=== PATIENT | male | born 1945 | race Caucasian/White ===

== ENCOUNTER 2016-09-14 17:51 | Emergency (ER) | payer OTHER ==
[2016-09-14 18:49] LABS: BUN/CREATININE RATIO 10 (0-10)
[2016-09-14 19:05] LABS: HEMOGLOBIN 14.1 gm/dl (14.0-17.5); RED BLOOD COUNT 5.47 M/UL (4.20-5.50)
[2016-09-18 12:29] LABS: WHITE BLOOD COUNT 20.1 K/UL (4.5-11.0)
[2016-12-13] MEDS ORDERED: ASPIR 8181 MG PO (09:34)
[2016-12-13] MEDS ORDERED: ELIQUIS5 MG PO (09:37)
[2016-12-13] MEDS ORDERED: METOPROLOL TART50 MG PO (09:40)
[2016-12-13] MEDS ORDERED: ZOCOR40 MG PO (09:41)
[2016-12-13] MEDS ORDERED: OMEPRAZOLE20 M1 PO (09:41)
[2016-12-13] MEDS ORDERED: COLESTID1 GM PO (09:43)
[2016-12-13] MEDS ORDERED: CLARITIN10 M2 PO (09:43)
[2016-12-13] MEDS ORDERED: ZOLOFT100 MG PO (09:44)
[2016-12-13] MEDS ORDERED: B-12500 MC1 SL (09:45)
[2016-12-13] MEDS ORDERED: B COMPLEX # 11 EACH PO (09:45)
[2016-12-13] MEDS ORDERED: VITAMIN D250000 UNIT PO (09:45)
[2017-01-28] MEDS ORDERED: LASIX20 MG PO (11:10)
[2017-01-28] MEDS ORDERED: DIGOXIN250 MCG PO (11:10)
[2017-01-28] MEDS ORDERED: IMDUR ER TAB 6060 MG PO (11:11)
[2017-01-28] MEDS ORDERED: FLOMAX 0.4 MG0.4 MG PO (11:13)
[2017-01-28] MEDS ORDERED: VITAMIN D10000 UNIT PO (11:14)
[2017-01-28] MEDS ORDERED: LISINOPRIL2.5 MG PO (11:15)
[2017-01-31] MEDS ORDERED: ALDACTONE25 MG PO (19:25)
== END 2016-09-14 23:45 | disposition home or self-care (01) ==
LOC: ER1 17:51
PROVIDERS: Emergency Medicine
DX: S02.2XXA Fracture of nasal bones, initial encounter for closed fracture (principal); S01.81XA Laceration without foreign body of other part of head, initial encounter; S50.02XA Contusion of left elbow, initial encounter; S80.212A Abrasion, left knee, initial encounter; I10 Essential (primary) hypertension; I48.91 Unspecified atrial fibrillation; Z87.891 Personal history of nicotine dependence; Z79.01 Long term (current) use of anticoagulants; Z88.8 Allergy status to other drugs, medicaments and biological substances; W18.39XA Other fall on same level, initial encounter; Y92.241 Library as the place of occurrence of the external cause
CPT/HCPCS: 12004; 70450; 70486; 72125; 72170; 73080; 73564; 80053; 84484; 85025; 85610; 85730; 96365; 96375; 99283; J0690; J2270; J2405; J7050

== ENCOUNTER → 2016-10-12 | Outpatient (CLI) | payer OTHER ==
[~2016-10-12] MED LIST: ALDACTONE25 MG PO; ASPIR 8181 MG PO; B COMPLEX # 11 EACH PO; B-12500 MC1 SL; CLARITIN10 M2 PO; COLESTID1 GM PO; DIGOXIN250 MCG PO; ELIQUIS5 MG PO; FLOMAX 0.4 MG0.4 MG PO; IMDUR ER TAB 6060 MG PO; LASIX20 MG PO; LISINOPRIL2.5 MG PO; METOPROLOL TART50 MG PO; OMEPRAZOLE20 M1 PO; VITAMIN D10000 UNIT PO; VITAMIN D250000 UNIT PO; ZOCOR40 MG PO; ZOLOFT100 MG PO
== END ==
LOC: RT 11:31
DX: I10 Essential (primary) hypertension (principal); I25.10 Atherosclerotic heart disease of native coronary artery without angina pectoris; R94.31 Abnormal electrocardiogram [ECG] [EKG]
CPT/HCPCS: 93005

== ENCOUNTER → 2017-01-10 | Outpatient (CLI) | payer OTHER ==
[~2017-01-10] MED LIST changes: -ALDACTONE25 MG PO; -DIGOXIN250 MCG PO; -FLOMAX 0.4 MG0.4 MG PO; -IMDUR ER TAB 6060 MG PO; -LASIX20 MG PO; -LISINOPRIL2.5 MG PO; -VITAMIN D10000 UNIT PO
== END ==
LOC: HEART 5 11:16
DX: J96.90 Respiratory failure, unspecified, unspecified whether with hypoxia or hypercapnia (principal)
CPT/HCPCS: 94060; 94729